=== PATIENT | female | born 1935 | race Asian ===

== ENCOUNTER → 2016-06-20 | Outpatient (CLI) | payer MEDICARE, BC ==
--- NOTE | 2016-06-20 11:45 | RADRPT ---
PROCEDURE: US Abdomen and Retroperitoneum. CLINICAL INDICATION: Hepatitis B TECHNIQUE: Multiple real-time longitudinal and transverse images were acquired of the patient's ab domen and retroperitoneum utilizing a curved array transducer. COMPARISON: 11/16/2015. FINDINGS: The liver is normal in size and echogenicity. No focal liver mass. A 2 cm benign appearing cyst is seen in the right lobe, not significantly change from prior study. Portal vein demonstrates hepatopetal flow. Gallbladder demonstrates a small gallbladder polyp measuring 5 mm. No gallbladder wall thickening o r pericholecystic fluid. No intra- or extrahepatic biliary dilation. Pancreas is partially visualized and grossly unremarkable. Spleen is normal in size. Kidneys demonstrate normal cortical thickness and echogenicity. No hydronephrosis. No ascites. Proximal aorta and IVC are unremarkable. MEASUREMENTS: Liver: 12.0 cm Common Duct: 0.3 cm Right Kidney: 10.1 cm Left Kidney: 10.3 cm Spleen: 6.8 cm IMPRESSION: Stable benign appearing cyst seen in the right lobe liver. No other focal hepatic masses. 5 mm gallbladder polyp not obviously seen on prior study. RPTAT:PP .Lavelle Toledo MD, MD Date Time Electronically viewed and signed by .Lavelle Toledo MD, MD on 06/20/2016 11:45 .V/
== END | disposition home or self-care (01) ==
LOC: U/S 07:51
PROVIDERS: ATTEND Internal Medicine Gastroenterology
DX: B18.1 Chronic viral hepatitis B without delta-agent (principal); D41.4 Neoplasm of uncertain behavior of bladder
CPT/HCPCS: 76700

== ENCOUNTER → 2016-12-12 | Outpatient (CLI) | payer MEDICARE, BC ==
--- NOTE | 2016-12-12 20:15 | RADRPT ---
PROCEDURE: US Abdomen and Retroperitoneum. CLINICAL INDICATION: Hepatitis B. TECHNIQUE: Multiple real-time longitudinal and transverse images were acquired of the patient's ab domen and retroperitoneum utilizing a curved array transducer. COMPARISON: 06/20/2016. FINDINGS: The liver is normal in size and normal in echogenicity. The liver has a normal smooth surface. Ther e is a benign cyst in the right hepatic lobe adjacent to the gallbladder measuring 1.8 cm in maximal diameter. There is no other focal hepatic lesion. Color Doppler and pulsed Doppler sonography demo nstrate normal antegrade flow in the portal vein. There are gallbladder polyps measuring 0.5 cm on the anterior wall and 0.5 cm on the posterior wall. The gallbladder is otherwise normal with no stones or wall thickening. The bile ducts are normal with the common bile duct measuring 3.6 mm in diameter. The spleen is small measuring 4.3 cm in length. There is no focal splenic lesion. The pancreas is partially seen and is unremarkable. There is no free fluid. The right kidney measures 9.8 cm and the left kidney measures 10.1 cm. There is no renal mass. There is no hydronephrosis or calculus. The abdominal aorta is not dilated. The inferior vena cava is unremarkable. IMPRESSION: 1. Benign hepatic cyst measuring 1.8 cm, unchanged. 2. Gallbladder polyps measuring 0.5 cm. The 0.5 cm polyp of the anterior wall was not visualized o n the prior study. Follow-up gallbladder ultrasound in 6 months is advised. 3. Small spleen measuring 4.3 cm. 4. Otherwise unremarkable study. RPTAT: QQ .Rohit Iyer MD, MD Date Time Electronically viewed and signed by .Rohit Iyer MD, MD on 12/12/2016 20:15 .R/
== END | disposition home or self-care (01) ==
LOC: U/S 08:49
PROVIDERS: ATTEND Internal Medicine Gastroenterology
DX: B19.10 Unspecified viral hepatitis B without hepatic coma (principal)
CPT/HCPCS: 76700

== ENCOUNTER → 2017-08-17 | Outpatient (CLI) | END | disposition home or self-care (01) ==

== ENCOUNTER → 2017-12-14 | Outpatient (CLI) | END | disposition home or self-care (01) ==